=== PATIENT | female | born 1990 | race Caucasian/White ===

== ENCOUNTER → 2017-07-24 | Outpatient (CLI) | payer OTHER ==
[2017-07-24 09:37] LABS: HCT 37.7 % (34.0-46.0); MCH 28.6 pg (25.0-35.0); MCHC 34.5 g/dL (31.0-37.0); MCV 82.8 fL (80.0-100.0); Mean Platelet Volume 7.7; Platelet Count 221 k/uL (150-450); RBC 4.56 m/uL (3.80-5.40); RDW 13.9 % (11.5-15.5); WBC 13.7 k/uL (3.8-10.6)
[2017-07-24 09:46] LABS: Glucose 75 mg/dL (74-99)
--- NOTE | 2017-07-24 10:00 | US ---
EXAMINATION TYPE: Transabdominal DATE OF EXAM: 07/10/17 COMPARISON: NONE CLINICAL HISTORY: Z36 Confirm Dates,. Confirm dates, 2, para 1 EXAM PERFORMED: Transvaginal (TV) and Transabdominal (TA) EXAM MEASUREMENTS: GESTATIONAL AGE / DATING Physician Established: (12 weeks/1 days) EDC: 02/04/2018 Dates by LMP: Unknown Dates by First Scan: No previous Dates by Current Scan for: (11 weeks/6 days) EDC: 02/06/2018 MATERNAL ANATOMY Uterus: 10.7 x 7.9 x 9.3cm, retroverted, heterogeneous Right Ovary: 2.8 x 1.5 x 2.0cm Left Ovary: not seen due to overlying bowel gas Post CDS / Adnexa: small amount of free fluid in posterior cul de sac Presence of free fluid: yes Presence of corpus luteal cyst: not seen at this time Presence of subchorionic bleed: 1.4 x 1.7 x 2.9cm complex area inferior to gestational sac GESTATION / SURVEY CRL: 5.0cm (11 weeks/6 days) Yolk Sac (normal less than 6mm): 7.8mm Heart Rate: 156 bpm Rhythm: Normal IUP: Viable IUP Nuchal Translucency 10-14wks (normal less than 3mm): unable to obtain due to position Date of LMP: Unknown Beta HcG (if available): Not available at time of exam Single live intrauterine gestation is seen as gestational sac, yolk sac and pole are identified . Yolk sac measures up to 8 mm which is abnormal (greater than 6 mm). Along superior aspect of gestat ional sac there is small to moderate-sized curvilinear fluid collection measuring 1.4 x 2.9 x 1.7 cm felt to reflect subchorionic hemorrhage. Small amount of free fluid is identified in pelvis. Backgrou nd uterus is heterogeneous, particularly anteriorly intramural fibroid cannot be excluded. Right ovary is seen. Left ovary is not clearly identified. No suspicious extraovarian adnexal masses are present. IMPRESSION: Single live intrauterine gestation is confirmed, mean crown-rump length is 5.0 cm corresponding to 11 weeks 6 day old fetus. Short-term ultrasound follow-up is advised.
[2017-07-24 18:21] LABS: HIV AB P24 Non-Reactive (Non-Reactive); HIV P24 AG Non-Reactive (Non-Reactive)
[2017-07-25 05:36] LABS: Toxoplasma Antibody (IgG) <3.0 IU/mL (<7.2); Toxoplasma Antibody (IgM) <3.0 AU/mL (<8.0)
== END | disposition home or self-care (01) ==
LOC: RADUSWWP 08:30
PROVIDERS: ATTEND Obstetrics & Gynecology
DX: Z36.89 Encounter for other specified antenatal screening (principal)
CPT/HCPCS: 36415; 76801; 76817; 82565; 82947; 85027; 86762; 86777; 86778; 86780; 86850; 86900; 86901; 87340; 87390

== ENCOUNTER 2017-09-06 10:03 | Emergency (ER) | payer OTHER ==
[2017-09-06 10:15] VITALS: RESP 18
[2017-09-06] MEDS ORDERED: METOCLOPRAMIDE 5 MG/ML 2 ML VIAL IVP STA (10:16)
[2017-09-06] MEDS ORDERED: SODIUM CHLORIDE 0.9% 2,000 ML IV STA (10:16)
--- NOTE | 2017-09-06 10:22 | ED ---
Nausea/Vomiting/Diarrhea HPI - General Chief complaint: Nausea/Vomiting/Diarrhea Stated complaint: Vomiting-18 weeks Time Seen by Provider: 09/06/17 10:15 Source: patient, RN notes reviewed Mode of arrival: ambulatory Limitations: no limitations - History of Present Illness Initial comments: 27-year-old female presents emergency Department chief complaint of nausea and diarrhea. Patient states symptoms started yesterday. Patient states that her daughter and mother also had symptoms. She denies any abdominal pain or cramping. She states that she has a known intrauterine bleed that her ICICLE MACHINE OPERATOR is following she has no vaginal bleeding at this time. Patient states that her ICICLE MACHINE OPERATOR is Dr. Frias. Patient is A0. She reports no fever no chills. She called her OB nurse who advised, emergency from for IV fluids. - Related Data Previous Rx's Medication Instructions Recorded Metoclopramide [Reglan] 10 mg PO TID PRN #15 tab 09/06/17 Allergies Allergy/AdvReac Type Severity Reaction Status Date / Time No Known Allergies Allergy Verified 09/06/17 10:21 Review of Systems ROS Statement: Those systems with pertinent positive or pertinent negative responses have been documented in the HPI. ROS Other: All systems not noted in ROS Statement are negative. Past Medical History Additional Past Medical History / Comment(s): Blood clotting disorder History of Any Multi-Drug Resistant Organisms: None Reported Past Surgical History: Section Past Psychological History: No Psychological Hx Reported Smoking Status: Never smoker Past Alcohol Use History: None Reported Past Drug Use History: None Reported General Exam Limitations: no limitations General appearance: alert, in no apparent distress Head exam: Present: atraumatic, normocephalic, normal inspection ENT exam: Present: normal exam, normal oropharynx, mucous membranes moist Neck exam: Present: normal inspection, full ROM. Absent: tenderness, meningismus, lymphadenopathy Respiratory exam: Present: normal lung sounds bilaterally. Absent: respiratory distress, wheezes, rales, rhonchi, stridor Cardiovascular Exam: Present: regular rate, normal rhythm, normal heart sounds. Absent: systolic murmur, diastolic murmur, rubs, gallop, clicks GI/Abdominal exam: Present: soft, normal bowel sounds. Absent: distended, tenderness, guarding, rebound, rigid Back exam: Absent: CVA tenderness (R), CVA tenderness (L) Neurological exam: Present: alert, oriented X3, CN II-XII intact Course Vital Signs 09/06/17 10:11 Temperature 98.5 F Pulse Rate 85 Respiratory 18 Rate Blood Pressure 135/84 O2 Sat by Pulse 98 Oximetry - Reevaluation(s) Reevaluation #1: 09/06/17 11:44 Patient was reevaluated and updated on lab results. Patient states she feels much better after fluids and antiemetics. Medical Decision Making - Medical Decision Making 27-year-old female presents from for nausea vomiting diarrhea. Patient has had multiple family members with similar symptoms. Patient was hydrated in feels better. Patient will be discharged with a few tablets of Reglan and return parameters were discussed. - Lab Data Result diagrams: 09/06/17 10:30 09/06/17 10:30 Lab Results 09/06/17 09/06/17 09/06/17 Range/Units 10:30 10:30 11:05 WBC 7.1 (3.8-10.6) k/uL RBC 4.21 (3.80-5.40) m/uL Hgb 12.8 (11.4-16.0) gm/dL Hct 35.3 (34.0-46.0) % MCV 83.7 (80.0-100.0) fL MCH 30.4 (25.0-35.0) pg MCHC 36.3 (31.0-37.0) g/dL RDW 14.0 (11.5-15.5) % Plt Count 225 (150-450) k/uL Neutrophils % 76 % Lymphocytes % 15 % Monocytes % 5 % Eosinophils % 1 % Basophils % 0 % Neutrophils # 5.4 (1.3-7.7) k/uL Lymphocytes # 1.1 (1.0-4.8) k/uL Monocytes # 0.4 (0-1.0) k/uL Eosinophils # 0.1 (0-0.7) k/uL Basophils # 0.0 (0-0.2) k/uL Sodium 138 (137-145) mmol/L Potassium 3.5 (3.5-5.1) mmol/L Chloride 102 (98-107) mmol/L Carbon Dioxide 22 (22-30) mmol/L Anion Gap 14 mmol/L BUN 4 L (7-17) mg/dL Creatinine 0.42 L (0.52-1.04) mg/dL Est GFR (CKD-EPI)AfAm >90 (>60 ml/min/1.73 sqM) Est GFR (CKD-EPI)NonAf >90 (>60 ml/min/1.73 sqM) Glucose 87 (74-99) mg/dL Calcium 9.4 (8.4-10.2) mg/dL Total Bilirubin 0.5 (0.2-1.3) mg/dL AST 19 (14-36) U/L ALT 20 (9-52) U/L Alkaline Phosphatase 46 (38-126) U/L Total Protein 6.9 (6.3-8.2) g/dL Albumin 4.0 (3.5-5.0) g/dL Amylase 56 (30-110) U/L Lipase 25 (23-300) U/L Urine Color Yellow Urine Appearance Clear (Clear) Urine pH 6.5 (5.0-8.0) Ur Specific [place] 1.010 (1.001-1.035) Urine Protein Negative (Negative) Urine Glucose (UA) Negative (Negative) Urine Ketones Trace H (Negative) Urine Blood Negative (Negative) Urine Nitrite Negative (Negative) Urine Bilirubin Negative (Negative) Urine Urobilinogen <2.0 (<2.0) mg/dL Ur Leukocyte Esterase Negative (Negative) Disposition Clinical Impression: Gastroenteritis Disposition: HOME SELF-CARE Condition: Stable Instructions: Acute Nausea and Vomiting (ED) Additional Instructions: Please return to the Emergency Department if symptoms worsen or any other concerns. Prescriptions: Metoclopramide [Reglan] 10 mg PO TID PRN #15 tab PRN Reason: GERD Is patient prescribed a controlled substance at d/c from ED?: No Referrals: Andrew Davies MD [Primary Care Provider] - 1-2 days Time of Disposition: 11:45
[2017-09-06 10:49] LABS: Basophils % (A) 0 %; Eosinophils # (A) 0.1 k/uL (0-0.7); Eosinophils % (A) 1 %; HCT 35.3 % (34.0-46.0); HGB 12.8 gm/dL (11.4-16.0); Lymphocytes # (A) 1.1 k/uL (1.0-4.8); Lymphocytes % (A) 15 %; MCH 30.4 pg (25.0-35.0); MCHC 36.3 g/dL (31.0-37.0); MCV 83.7 fL (80.0-100.0); Mean Platelet Volume 7.3; Monocytes # (A) 0.4 k/uL (0-1.0); Monocytes % (A) 5 %; Neutrophils # (A) 5.4 k/uL (1.3-7.7); Neutrophils % (A) 76 %; Platelet Count 225 k/uL (150-450); RBC 4.21 m/uL (3.80-5.40); WBC 7.1 k/uL (3.8-10.6)
[2017-09-06 11:05] LABS: ALT 20 U/L (9-52); AST 19 U/L (14-36); Alkaline Phosphatase 46 U/L (38-126); Amylase 56 U/L (30-110); Anion Gap 14 mmol/L; Blood Urea Nitrogen 4 mg/dL (7-17); Calcium 9.4 mg/dL (8.4-10.2); Carbon Dioxide 22 mmol/L (22-30); Chloride 102 mmol/L (98-107); Glucose 87 mg/dL (74-99); Lipase 25 U/L (23-300); Potassium 3.5 mmol/L (3.5-5.1); Sodium 138 mmol/L (137-145); Total Bilirubin 0.5 mg/dL (0.2-1.3); Total Protein 6.9 g/dL (6.3-8.2)
[2017-09-06 11:34] LABS: Appearance,Urine Clear (Clear); Bilirubin,Urine Negative (Negative); Blood,Urine Negative (Negative); Color,Urine Yellow; Glucose,Urine (UA) Negative (Negative); Ketones,Urine Trace (Negative); Leukocyte Esterase,Urine Negative (Negative); Nitrite,Urine Negative (Negative); PH, Urine 6.5 (5.0-8.0); Protein,Urine Negative (Negative); Urobilinogen,Urine <2.0 mg/dL (<2.0)
[2017-09-06 12:06] VITALS: BP 116/55; PULSE 58; TEMP 98
== END 2017-09-06 12:35 | disposition home or self-care (01) ==
LOC: EC 10:03
DX: O99.612 Diseases of the digestive system complicating pregnancy, second trimester (principal); K52.9 Noninfective gastroenteritis and colitis, unspecified; Z3A.18 18 weeks gestation of pregnancy
CPT/HCPCS: 36415; 80053; 81003; 82150; 83690; 85025; 96361; 96374; 99284

== ENCOUNTER 2018-01-28 05:45 | Inpatient (IN) | payer OTHER ==
--- NOTE | 2018-01-25 06:44 | P.HPOB ---
History of Present Illness H&P Date: 01/25/18 Chief Complaint: section and tubal ligation This patient is a pleasant 27-year-old 2 para 1 female estimated date of confinement 02/04/2018 estimated gestational age 39-0/7 weeks who presents to labor and delivery for repeat section secondary to previous section and antiphospholipid syndrome. Patient is also requesting permanent sterilization. Patient's is complicated by known antiphospholipid syndrome and she is been on aspirin and heparin throughout the . She did stop the aspirin at 36 weeks and stopped her heparin on Sunday evening. Patient's otherwise has been uncomplicated. Review of Systems Gastrointestinal: Reports heartburn Genitourinary: Reports Menstruation: Reports amenorrhea Past Medical History Past Medical History: Blood Disorder Additional Past Medical History / Comment(s): Blood clotting disorder - CARDIOLIPIN ANTIOBODIES History of Any Multi-Drug Resistant Organisms: None Reported Past Surgical History: Section Past Anesthesia/Blood Transfusion Reactions: No Reported Reaction Past Psychological History: No Psychological Hx Reported Smoking Status: Never smoker Past Alcohol Use History: None Reported Past Drug Use History: None Reported - Past Family History Mother Family Medical History: No Reported History Medications and Allergies Home Medications Medication Instructions Recorded Confirmed Type Heparin 80 Units 80 units SQ BID 01/23/18 History Pnv,Calcium 72/Iron/Folic Acid 1 each PO DAILY 01/23/18 01/23/18 History [ Plus Tablet] Allergies Allergy/AdvReac Type Severity Reaction Status Date / Time No Known Allergies Allergy Verified 01/23/18 14:31 Exam - OBG Physical Exam Abdomen: bowel sounds normal, no diffuse tenderness, no bruit present, no guarding noted, no hepatomegaly, no splenomegaly, no mass Vulva: both: normal Vagina: normal moisture, no discharge Cervix: no lesion, no discharge Uterus: enlarged Adnexa: both: normal Anus/Rectum: normal perianal skin, no rectal mass, no hemorrhoids, heme negative Results blood work shows she is A positive, rubella nonimmune, RPR nonreactive , hepatitis B negative, HIV nonreactive, Glucola was normal, group B strep was negative, ultrasounds have been normal. Patient has a history of positive anticardiolipin antibody Assessment and Plan Assessment: This is a pleasant 27-year-old 2 para 1 female estimated gestational age 39 weeks who presents for repeat section and also requesting tubal ligation. Patient has known antiphospholipid syndrome and has been on heparin however discontinued this prior to surgery. Plan is to check coagulation factors, proceed with repeat section and bilateral partial salpingectomy. Patient will have heparin and DVT prophylaxis. Patient does understand a tubal ligation is considered permanent however does have a failure rate of approximately 5 per thousand. She understands that surgery itself has risks including risks of infection, bleeding, possible bowel , bladder, vessels, and/or other organs. She also understands that due to her condition she is at increased risk of DVT and pulmonary embolism. All the patient's questions are answered written consent is obtained. (1) Previous delivery affecting Status: Acute Code(s): O34.219 - MATERNAL CARE FOR UNSP TYPE SCAR FROM PREVIOUS DEL SNOMED Code(s): 003076629 (2) Family planning Status: Acute Code(s): Z30.09 - ENCOUNTER FOR OTH GENERAL CNSL AND ADVICE ON CONTRACEPTION SNOMED Code(s): 942568587 (3) Antiphospholipid antibody positive Status: Acute Code(s): R76.0 - RAISED ANTIBODY TITER SNOMED Code(s): 818134129
[2018-01-28] MEDS ORDERED: CITRIC ACID-SODIUM CITRATE 15 ML CUP PO ONE (06:01)
[2018-01-28] MEDS ORDERED: LACTATED RINGERS 1,000 ML IV SCH (06:01)
[2018-01-28] MEDS ORDERED: LACTATED RINGERS 1,000 ML IV ONE (06:01)
[2018-01-28 06:08] VITALS: BMI 42.3
[2018-01-28 06:15] LABS: Basophils # (A) 0.1 k/uL (0-0.2); Basophils % (A) 0 %; Eosinophils # (A) 0.2 k/uL (0-0.7); Eosinophils % (A) 1 %; HCT 36.5 % (34.0-46.0); HGB 12.6 gm/dL (11.4-16.0); Lymphocytes # (A) 2.7 k/uL (1.0-4.8); Lymphocytes % (A) 19 %; MCH 29.6 pg (25.0-35.0); MCHC 34.6 g/dL (31.0-37.0); MCV 85.5 fL (80.0-100.0); Mean Platelet Volume 7.7; Monocytes # (A) 0.6 k/uL (0-1.0); Monocytes % (A) 4 %; Neutrophils # (A) 10.2 k/uL (1.3-7.7); Neutrophils % (A) 73 %; Platelet Count 248 k/uL (150-450); RBC 4.27 m/uL (3.80-5.40); RDW 14.3 % (11.5-15.5)
[2018-01-28 06:28] LABS: INR 0.9 (<1.2); Partial Thromboplastin Time 25.2 sec (22.0-30.0); Prothrombin Time 9.3 sec (9.0-12.0)
[2018-01-28] MEDS ORDERED: ceFAZolin IN SWFI 2 GM/20 ML SYRINGE IVP ONE (07:16)
[2018-01-28] MEDS ORDERED: NALBUPHINE 10 MG/ML VIAL (10ML MDV) ONE (07:51)
[2018-01-28] MEDS ORDERED: ONDANSETRON 4 MG/2 ML VIAL ONE (07:51)
[2018-01-28] MEDS ORDERED: DEXAMETHASONE SOD PHOS (MDV) 100 MG/10 ML VIAL ONE (07:51)
[2018-01-28] MEDS ORDERED: MORPHINE SULFATE (PF) 0.3 MG/0.3 ML SYR ONE (07:51)
[2018-01-28] MEDS ORDERED: OXYTOCIN 10 UNIT/ML 1 ML VIAL ONE (07:51)
[2018-01-28] MEDS ORDERED: ePHEDrine SULFATE/0.9% NACL/PF 50 MG/5 ML SYRINGE IV ONE (07:51)
[2018-01-28] MEDS ORDERED: METOCLOPRAMIDE 5 MG/ML 2 ML VIAL IVP PRN ×2 (08:39→10:39)
[2018-01-28] MEDS ORDERED: diphenhydrAMINE 50 MG/ML 1 ML VIAL IVP PRN ×2 (08:39→10:39)
[2018-01-28] MEDS ORDERED: NALBUPHINE 10 MG/ML VIAL (10ML MDV) IV PRN (08:39)
[2018-01-28] MEDS ORDERED: NALOXONE 0.4 MG/ML 1 ML VIAL IV PRN ×2 (08:39→10:39)
[2018-01-28] MEDS ORDERED: HYDROmorphone 1 MG/ML 1 ML SYRINGE IVP PRN (08:39)
--- NOTE | 2018-01-28 08:46 | P.OP ---
Date of Procedure: 01/28/18 Preoperative Diagnosis: #1: 39-0/7 weeks . #2: Previous section desires repeat. #3: Multi parity desires permanent sterilization. Postoperative Diagnosis: Same, true knot in the umbilical cord Procedure(s) Performed: Repeat low transverse section and bilateral partial salpingectomy Anesthesia: spinal Surgeon: Krzysztof Frias Web Site Manager #1: Michelle Mcmillan Estimated Blood Loss (ml): 800 Pathology: other (Placenta and bilateral fallopian tube segments) Condition: stable Disposition: floor Indications for Procedure: Please see dictated H&P for intimate details of this patient's admission. Brief summary this is a pleasant 27-year-old 2 para 1 female 39-0/7 weeks gestation who is admitted to labor and delivery for elective repeat section and also requesting permanent sterilization. Patient understands a tubal ligation is permanent however there is a failure rate of approximately 5 per thousand procedures done. She understands if she does become she is a 50% chance of a tubal or ectopic . She also understands risk of surgery including risks of infection, bleeding, possible injury bowel, bladder, vessels, and/or other organs. All the patient's questions are answered and a written consent is obtained. Operative Findings: This is a vigorous viable female infant Apgars are 8 and 9 delivery time is 0810 hours. There was a true knot in the umbilical cord. Description of Procedure: This patient has a Chakraborty catheter placed to straight drain. She is subsequently taken to the operating room where she sat up and spinal anesthetic is administered without incident. With an adequate level of anesthesia she has abdominal prep and drape. Scalpels then taken and a Pfannenstiel skin incision is then made. A second scalpel is taken down to the fascia and the fascia scored with a knife. Fascial incision extended bilaterally using the Early scissors. Fascia is then taken sharply off the rectus muscles. Rectus muscles are the peritoneum identified and entered sharply. Peritoneal incision extended superior and inferior without difficulty. Bladder blade is then placed. Bladder peritoneum was taken off the lower uterine segment sharply. Scalpels and taken a low transverse uterine incision is then made. Using a hemostat I into the uterine cavity bluntly. The placenta is found to be anteriorly. I bluntly go through the uterine incision and there is loss of clear fluid. This incision is extended bluntly. Infant's head is then guided through the incision with fundal pressure the infant is delivered. Mouth and nares are bulb suctioned there is no evidence of a nuchal cord. We then have delivery anterior posterior shoulder and rest this 's body. Vigorous viable female infant Apgars are 8 and 9. Infant has spontaneous respirations and good cry. The umbilical cord is doubly clamped and cut. There is a true knot 1. Infant is handed off to the nurses in attendance. The placenta is then manually extracted intact. The uterine incision demarcated with Zheng clamps and closed using 0 Vicryl running locked fashion area in excellent hemostasis is noted. Then turned my attention to the left fallopian tube and using a hemostat I grabbed the fallopian tube approximately 4 cm from its cornual insertion using Bovie cautery a small window made to the mesial salpinx. Using a 2-0 silk suture I doubly ligate a knuckle the tube. A 2 cm segment of the tube was then handed off to pathology. Cauterization done of the tubal ends. Similar technique is done on the right side with similar results. Excess fluid is removed from the pelvis. The bladder peritoneum is reapproximated using a 3-0 Vicryl suture. Excellent hemostasis is noted. Uterus placed back into the abdomen. Final inspection shows hemostasis. The parietal peritoneum was then closed using 0 Vicryl running fashion. Rectus muscles reapproximated in 0 Vicryl interrupted fashion. Fascia is then closed using 0 PDS. Fascial incision is intact and hemostatic. Subcutaneous tissues and closed using a 3-0 Vicryl. Skin is and closed using mishel. All counts are correct 3. There are no complications. Patient is taken to her birthing suite in satisfactory condition.
[2018-01-28] MEDS ORDERED: diphenhydrAMINE 25 MG CAP PO PRN (10:39)
[2018-01-28] MEDS ORDERED: ZOLPIDEM 5 MG TAB PO PRN (10:39)
[2018-01-28] MEDS ORDERED: ACETAMINOPHEN TAB 325 MG TAB PO PRN (10:39)
[2018-01-28] MEDS ORDERED: SIMETHICONE 80 MG CHEWABLE PO PRN (10:39)
[2018-01-28] MEDS ORDERED: ONDANSETRON 4 MG/2 ML VIAL IVP PRN (10:39)
[2018-01-28] MEDS ORDERED: OXYTOCIN 20 UNITS/1000 ML NS 1,000 ML IV SCH (10:39)
[2018-01-28] MEDS: KETOROLAC 30 MG/ML 1 ML VIAL IVP PRN (16:29)
[2018-01-28] MEDS: LACTATED RINGERS 1,000 ML IV SCH (17:17)
[2018-01-28] MEDS: SENNOSIDES-DOCUSATE SODIUM 1 EACH TAB PO SCH (20:14)
[2018-01-29] MEDS: KETOROLAC 30 MG/ML 1 ML VIAL IVP PRN ×3 (00:57→14:18)
--- NOTE | 2018-01-29 06:19 | P.PNOBGPC ---
Subjective - Subjective Patient reports: Reports appetite normal, Reports voiding normally, Reports pain well controlled, Reports ambulating normally : doing well Objective - Vital Signs Latest vital signs: Vital Signs Temp Pulse Resp BP Pulse Ox 01/29/18 05:00 16 01/29/18 03:20 98.3 F 69 16 111/64 01/29/18 03:00 16 98 01/29/18 01:00 16 98 01/29/18 00:00 69 16 01/28/18 23:56 98.5 F 69 16 125/65 99 01/28/18 23:00 16 98 01/28/18 21:00 16 98 01/28/18 20:00 98.6 F 81 16 138/72 98 01/28/18 19:00 16 01/28/18 17:00 16 96 01/28/18 16:00 98.2 F 90 16 141/72 96 01/28/18 15:00 18 01/28/18 13:38 98 01/28/18 13:00 16 01/28/18 12:00 96.8 F L 80 18 129/69 98 01/28/18 11:39 18 97 01/28/18 10:35 96.3 F L 80 18 142/65 97 01/28/18 10:09 78 18 132/61 98 01/28/18 09:39 96.8 F L 109 H 18 136/60 98 01/28/18 09:34 81 18 97 01/28/18 09:24 78 18 133/67 98 01/28/18 09:09 97.2 F L 94 18 139/70 01/28/18 08:54 82 18 119/66 100 01/28/18 08:39 96.5 F L 78 18 114/66 98 Intake and Output 01/28/18 01/28/18 01/29/18 14:59 22:59 06:59 Intake Total 1200 1640 Output Total 3299 458 1670 Balance 200 1015 -1000 Intake: Intake, IV Titration 1000 1000 Amount Lactated Ringers 1,000 ml 1000 @ 125 mls/hr IV .Q8H [facility] Rx#:[id number] Lactated Ringers 1,000 ml 1000 @ 4000 mls/hr IV .Q15M [facility] Rx#:[id number] Oral 200 640 Output: Urine 723 338 9567 Uretheral (Chakraborty) 425 500 Emesis 100 200 Estimated Blood Loss 600 Other: Voiding Method Indwelling Catheter Indwelling Catheter # Voids 450 1 - Exam Lungs: bilateral: normal Chest: Normal S1, Normal S2 Extremities: Present: normal Abdomen: Present: normal appearance, soft. Absent: distention, tenderness Incision: Present: normal, dry, intact Uterus: Present: normal, firm - Labs Labs: Abnormal Lab Results - Last 24 Hours (Table) 01/28/18 Range/Units 06:00 WBC 14.0 H (3.8-10.6) k/uL Neutrophils # 10.2 H (1.3-7.7) k/uL Assessment and Plan Assessment: Post operative day #1. Patient is resting without complaints. Vital signs are stable she's afebrile. Uterus is firm nontender and she is having normal lochia. CBC is pending her baby had some respiratory issues and currently in special care and stable. Plan is to advance her diet, encourage ambulation, allow the patient to shower, and continue routine postoperative care. (1) Previous delivery affecting Current Visit: No Status: Acute Code(s): O34.219 - MATERNAL CARE FOR UNSP TYPE SCAR FROM PREVIOUS DEL SNOMED Code(s): 049701261 (2) Family planning Current Visit: No Status: Acute Code(s): Z30.09 - ENCOUNTER FOR OTH GENERAL CNSL AND ADVICE ON CONTRACEPTION SNOMED Code(s): 616725517 (3) Antiphospholipid antibody positive Current Visit: No Status: Acute Code(s): R76.0 - RAISED ANTIBODY TITER SNOMED Code(s): 714431220
[2018-01-29] MEDS: SENNOSIDES-DOCUSATE SODIUM 1 EACH TAB PO SCH ×3 (07:59→21:35)
[2018-01-29 08:20] LABS: Basophils % (A) 0 %; Eosinophils # (A) 0.1 k/uL (0-0.7); Eosinophils % (A) 1 %; HGB 10.4 gm/dL (11.4-16.0); Lymphocytes # (A) 2.1 k/uL (1.0-4.8); Lymphocytes % (A) 18 %; MCHC 33.5 g/dL (31.0-37.0); MCV 86.6 fL (80.0-100.0); Mean Platelet Volume 7.6; Monocytes # (A) 0.6 k/uL (0-1.0); Monocytes % (A) 5 %; Neutrophils # (A) 8.8 k/uL (1.3-7.7); Neutrophils % (A) 73 %; Platelet Count 225 k/uL (150-450); RBC 3.58 m/uL (3.80-5.40); RDW 14.5 % (11.5-15.5)
--- NOTE | 2018-01-29 10:24 | P.PN ---
Subjective Progress Note Date: 01/29/18 Principal diagnosis: PO 1 s/p section Patient without any complains this AM Denies Headaches no purities site free of erythema/signs of infx S/P Duramorph spinal without complications, primary team will follow pain manag. Objective - Vital Signs Vital signs: Vital Signs Temp 98.1 F 01/29/18 07:54 Pulse 72 01/29/18 07:54 Resp 16 01/29/18 08:38 BP 110/59 01/29/18 07:54 Pulse Ox 96 01/29/18 07:54 Intake & Output 01/28/18 01/29/18 01/29/18 18:59 06:59 18:59 Intake Total 2740 100 620 Output Total 1625 1000 Balance 1115 -900 620 Intake: Intake, IV Titration 2000 500 Amount Lactated Ringers 1,000 ml 500 @ 125 mls/hr IV .Q8H [facility] Rx#:[id number] Lactated Ringers 1,000 ml 1000 @ 125 mls/hr IV .Q8H [facility] Rx#:[id number] Lactated Ringers 1,000 ml 1000 @ 4000 mls/hr IV .Q15M [facility] Rx#:[id number] Oral 740 100 120 Output: Urine 725 1000 Uretheral (Chakraborty) 425 500 Emesis 300 Estimated Blood Loss 600 Other: Voiding Method Indwelling Catheter # Voids 450 1 550 - Labs CBC & Chem 7: 01/29/18 07:36 Labs: Abnormal Lab Results - Last 24 Hours (Table) 01/29/18 Range/Units 07:36 WBC 12.0 H (3.8-10.6) k/uL RBC 3.58 L (3.80-5.40) m/uL Hgb 10.4 L (11.4-16.0) gm/dL Hct 31.0 L (34.0-46.0) % Neutrophils # 8.8 H (1.3-7.7) k/uL
[2018-01-29] MEDS: HYDROcodone/APAP 5-325MG 1 EACH TAB PO PRN ×2 (13:00→23:48)
[2018-01-29] MEDS ORDERED: MEASLES-MUMPS-RUBELLA VACC/PF 12,500 UNIT/0.5 ML VIAL SQ ONE (13:28)
[2018-01-29] MEDS: IBUPROFEN 600 MG TAB PO PRN (19:55)
[2018-01-30] MEDS: IBUPROFEN 600 MG TAB PO PRN ×3 (05:15→16:32)
--- NOTE | 2018-01-30 06:09 | P.PNOBGPC ---
Subjective - Subjective Patient reports: Reports appetite normal, Reports voiding normally, Reports pain well controlled, Reports ambulating normally : doing well Objective - Vital Signs Latest vital signs: Vital Signs Temp Pulse Resp BP Pulse Ox 01/30/18 00:00 16 01/29/18 23:49 98.4 F 80 16 114/69 98 01/29/18 23:00 16 01/29/18 15:34 98.5 F 79 18 124/64 97 01/29/18 15:00 18 01/29/18 13:00 18 01/29/18 08:38 16 01/29/18 07:54 98.1 F 72 16 110/59 96 01/29/18 07:00 16 Intake and Output 01/29/18 01/29/18 01/30/18 14:59 22:59 06:59 Intake Total 1820 Balance 1820 Intake: Intake, IV Titration 500 Amount Lactated Ringers 1,000 ml 500 @ 125 mls/hr IV .Q8H [facility] Rx#:[id number] Oral 1320 Other: # Voids 2 - Exam Lungs: bilateral: normal Chest: Normal S1, Normal S2 Extremities: Present: normal Abdomen: Present: normal appearance, soft. Absent: distention, tenderness Incision: Present: normal, dry, intact Uterus: Present: normal, firm - Labs Labs: Abnormal Lab Results - Last 24 Hours (Table) 01/29/18 Range/Units 07:36 WBC 12.0 H (3.8-10.6) k/uL RBC 3.58 L (3.80-5.40) m/uL Hgb 10.4 L (11.4-16.0) gm/dL Hct 31.0 L (34.0-46.0) % Neutrophils # 8.8 H (1.3-7.7) k/uL Assessment and Plan Assessment: Postoperative day #2. Patient is resting without new complaints. Vital signs are stable she is afebrile. Her incision is intact and dry. Her baby continues in special care and oxygen but appears to be clinically improving today. I am going to restart her heparin today since her lochia was normal and her CBC is normal. Plan is to continue routine postoperative care and restart heparin 5000 twice a day. (1) Previous delivery affecting Current Visit: No Status: Acute Code(s): O34.219 - MATERNAL CARE FOR UNSP TYPE SCAR FROM PREVIOUS DEL SNOMED Code(s): 441541136 (2) Family planning Current Visit: No Status: Acute Code(s): Z30.09 - ENCOUNTER FOR OTH GENERAL CNSL AND ADVICE ON CONTRACEPTION SNOMED Code(s): 371592721 (3) Antiphospholipid antibody positive Current Visit: No Status: Acute Code(s): R76.0 - RAISED ANTIBODY TITER SNOMED Code(s): 889673046
[2018-01-30] MEDS: HEPARIN SODIUM,PORCINE 5,000 UNIT/ML 1 ML VIAL SQ SCH ×2 (10:25→21:29)
[2018-01-30] MEDS: SENNOSIDES-DOCUSATE SODIUM 1 EACH TAB PO SCH ×2 (10:42→20:54)
[2018-01-30] MEDS: LACTATED RINGERS 1,000 ML IV SCH ×2 (20:55→20:58)
[2018-01-31] MEDS: IBUPROFEN 600 MG TAB PO PRN ×2 (05:00→15:25)
--- NOTE | 2018-01-31 06:26 | P.PNOBGPC ---
Subjective - Subjective Patient reports: Reports appetite normal, Reports voiding normally, Reports pain well controlled, Reports ambulating normally : doing well Objective - Vital Signs Latest vital signs: Vital Signs Temp Pulse Resp BP Pulse Ox 01/30/18 23:55 98.8 F 82 16 132/76 98 01/30/18 16:00 98.2 F 86 18 131/69 97 01/30/18 08:00 98.5 F 83 18 127/73 98 - Exam Lungs: bilateral: normal Chest: Normal S1, Normal S2 Extremities: Present: normal Abdomen: Present: normal appearance, soft. Absent: distention, tenderness Incision: Present: normal, dry, intact Uterus: Present: normal, firm Assessment and Plan Assessment: Postoperative day #3. Patient is resting without complaints. Vital signs are stable she is afebrile. Uterus is firm nontender and she is having normal lochia. Patient is tolerating regular diet, ambulating, urinating without difficulty. Patient's baby has improved markedly overnight and the patient will continue to be here until tomorrow. Plan is to continue routine postoperative care and discharge home tomorrow (1) Previous delivery affecting Current Visit: No Status: Acute Code(s): O34.219 - MATERNAL CARE FOR UNSP TYPE SCAR FROM PREVIOUS DEL SNOMED Code(s): 414940690 (2) Family planning Current Visit: No Status: Acute Code(s): Z30.09 - ENCOUNTER FOR OTH GENERAL CNSL AND ADVICE ON CONTRACEPTION SNOMED Code(s): 078494886 (3) Antiphospholipid antibody positive Current Visit: No Status: Acute Code(s): R76.0 - RAISED ANTIBODY TITER SNOMED Code(s): 128175406
[2018-01-31] MEDS: HEPARIN SODIUM,PORCINE 5,000 UNIT/ML 1 ML VIAL SQ SCH ×2 (09:15→23:12)
[2018-01-31] MEDS: SENNOSIDES-DOCUSATE SODIUM 1 EACH TAB PO SCH ×2 (10:14→23:12)
[2018-02-01] MEDS: IBUPROFEN 600 MG TAB PO PRN (03:04)
--- NOTE | 2018-02-01 05:56 | P.PNOBGPC ---
Subjective - Subjective Patient reports: Reports appetite normal, Reports voiding normally, Reports pain well controlled, Reports ambulating normally : doing well Objective - Vital Signs Latest vital signs: Vital Signs Temp Pulse Resp BP Pulse Ox 01/31/18 23:26 98.1 F 73 16 122/57 98 01/31/18 15:31 98.2 F 79 16 135/70 97 01/31/18 08:00 67 18 01/31/18 07:50 98.3 F 67 18 119/65 98 Intake and Output 01/31/18 01/31/18 02/01/18 14:59 22:59 06:59 Other: Voiding Method Toilet # Voids 1 - Exam Lungs: bilateral: normal Chest: Normal S1, Normal S2 Extremities: Present: normal Abdomen: Present: normal appearance, soft. Absent: distention, tenderness Incision: Present: normal, dry, intact Uterus: Present: normal, firm Assessment and Plan Assessment: Postoperative day #4. Patient is resting without complaints. Vital signs are stable she is afebrile. Her incision is intact and dry. normal course. Plan is to continue routine care and discharge home later today (1) Previous delivery affecting Current Visit: No Status: Acute Code(s): O34.219 - MATERNAL CARE FOR UNSP TYPE SCAR FROM PREVIOUS DEL SNOMED Code(s): 800007901 (2) Family planning Current Visit: No Status: Acute Code(s): Z30.09 - ENCOUNTER FOR OTH GENERAL CNSL AND ADVICE ON CONTRACEPTION SNOMED Code(s): 502107351 (3) Antiphospholipid antibody positive Current Visit: No Status: Acute Code(s): R76.0 - RAISED ANTIBODY TITER SNOMED Code(s): 180169822
--- NOTE | 2018-02-01 06:00 | P.DS ---
Providers Date of admission: 01/28/18 05:45 Expected date of discharge: 02/01/18 Attending physician: Krzysztof Frias Primary care physician: Krzysztof Frias - Discharge Diagnosis(es) (1) Previous delivery affecting Current Visit: No Status: Acute (2) Family planning Current Visit: No Status: Acute (3) Antiphospholipid antibody positive Current Visit: No Status: Acute Hospital Course: Please see dictated H&P for intimate details of this patient's admission. Brief summary is a pleasant 27-year-old 2 para 1 female 39 weeks gestation who is admitted to labor and delivery for elective repeat section and tubal ligation. Patient undergoes above-named surgery. By postoperative for patient was felt to be stable for discharge home follow up with me in 1 week for an incision check. Procedures: Repeat low transverse section and bilateral partial salpingectomy Patient Condition at Discharge: Good Plan - Discharge Summary Discharge Rx Participant: Yes New Discharge Prescriptions: New Ibuprofen [Motrin] 600 mg PO Q6HR PRN #40 tab PRN Reason: Mild Pain Or Fever >= 100.5 No Action Heparin 80 Units 80 units SQ BID Pnv,Calcium 72/Iron/Folic Acid [ Plus Tablet] 1 each PO DAILY Discharge Medication List Heparin 80 Units 80 units SQ BID 01/23/18 [History] Pnv,Calcium 72/Iron/Folic Acid [ Plus Tablet] 1 each PO DAILY 01/23/18 [ History] Ibuprofen [Motrin] 600 mg PO Q6HR PRN #40 tab 02/01/18 [Rx] Follow up Appointment(s)/Referral(s): Krzysztof Frias MD [Primary Care Provider] - 02/07/18 1:30 pm (Patient also has a visit on March 13 at 2:15 PM.) Patient Instructions/Handouts: (DC) Activity/Diet/Wound Care/Special Instructions: No heavy lifting or strenuous activities for 6 weeks. No intercourse or anything per vagina for 6 weeks. Please call if any fever, chills, excessive vaginal bleeding, and/or abdominal pain. Discharge Disposition: HOME SELF-CARE
[2018-02-01 08:00] VITALS: BP 135/77; PULSE 75; RESP 17; TEMP 98.9
[2018-02-01] MEDS: SENNOSIDES-DOCUSATE SODIUM 1 EACH TAB PO SCH (09:01)
[2018-02-01] MEDS: HEPARIN SODIUM,PORCINE 5,000 UNIT/ML 1 ML VIAL SQ SCH (09:01)
== END 2018-02-01 12:50 | disposition home or self-care (01) | DRG 784 ==
LOC: 4FBP 05:45
PROVIDERS: ADMIT Obstetrics & Gynecology; ATTEND Obstetrics & Gynecology
PROC: 0UB70ZZ Excision of Bilateral Fallopian Tubes, Open Approach (ICD-10-PCS; principal; 2018-01-28 08:00)
PROC: 10D00Z1 Extraction of Products of Conception, Low, Open Approach (ICD-10-PCS; principal; 2018-01-28 08:00)
PROC: 3E0134Z Introduction of Serum, Toxoid and Vaccine into Subcutaneous Tissue, Percutaneous Approach (ICD-10-PCS; 2018-01-29)
DX: O34.211 Maternal care for low transverse scar from previous cesarean delivery (principal); D68.61 Antiphospholipid syndrome; O99.12 Other diseases of the blood and blood-forming organs and certain disorders involving the immune mechanism complicating childbirth; O69.2XX0 Labor and delivery complicated by other cord entanglement, with compression, not applicable or unspecified; N85.8 Other specified noninflammatory disorders of uterus; Z37.0 Single live birth; Z30.2 Encounter for sterilization; Z23 Encounter for immunization; Z3A.39 39 weeks gestation of pregnancy; Z79.01 Long term (current) use of anticoagulants; Z79.82 Long term (current) use of aspirin; Z79.899 Other long term (current) drug therapy
CPT/HCPCS: 85025; 85610; 85730; 86850; 86870; 86880; 86900; 86901; 88302; 88307; 90707

== ENCOUNTER 2018-03-16 13:37 | Emergency (ER) | payer OTHER ==
[2018-03-16 13:58] VITALS: TEMP 98.3
[2018-03-16] MEDS ORDERED: SODIUM CHLORIDE 0.9% 1,000 ML IV STA (14:44)
[2018-03-16 15:30] LABS: Basophils % (A) 1 %; Eosinophils # (A) 0.3 k/uL (0-0.7); Eosinophils % (A) 3 %; HCT 37.9 % (34.0-46.0); HGB 12.7 gm/dL (11.4-16.0); Lymphocytes # (A) 2.3 k/uL (1.0-4.8); Lymphocytes % (A) 30 %; MCH 28.1 pg (25.0-35.0); MCHC 33.4 g/dL (31.0-37.0); Mean Platelet Volume 7.3; Monocytes # (A) 0.3 k/uL (0-1.0); Monocytes % (A) 4 %; Neutrophils # (A) 4.6 k/uL (1.3-7.7); Neutrophils % (A) 59 %; Platelet Count 286 k/uL (150-450); RBC 4.51 m/uL (3.80-5.40); RDW 13.7 % (11.5-15.5); WBC 7.7 k/uL (3.8-10.6)
[2018-03-16 15:40] LABS: ALT 39 U/L (9-52); AST 23 U/L (14-36); Albumin 4.2 g/dL (3.5-5.0); Alkaline Phosphatase 57 U/L (38-126); Anion Gap 9 mmol/L; Blood Urea Nitrogen 11 mg/dL (7-17); Calcium 9.6 mg/dL (8.4-10.2); Carbon Dioxide 25 mmol/L (22-30); Chloride 107 mmol/L (98-107); Glucose 90 mg/dL (74-99); Lipase 57 U/L (23-300); Potassium 4.4 mmol/L (3.5-5.1); Sodium 141 mmol/L (137-145); Total Bilirubin 0.3 mg/dL (0.2-1.3); Total Protein 7.2 g/dL (6.3-8.2)
[2018-03-16 16:40] LABS: Appearance,Urine Cloudy (Clear); Bilirubin,Urine Negative (Negative); Blood,Urine Negative (Negative); Color,Urine Yellow; Glucose,Urine (UA) Negative (Negative); Ketones,Urine Negative (Negative); Leukocyte Esterase,Urine Trace (Negative); Mucus,Urine Moderate /hpf; Nitrite,Urine Negative (Negative); PH, Urine 5.5 (5.0-8.0); Protein,Urine Negative (Negative); Specific Gravity,Urine 1.018 (1.001-1.035); Squamous Epithelial Cell,Urine 20 /hpf (0-4); Urobilinogen,Urine <2.0 mg/dL (<2.0)
--- NOTE | 2018-03-16 17:23 | CT ---
EXAMINATION TYPE: CT abdomen pelvis w con DATE OF EXAM: 03/16/2018 COMPARISON: None HISTORY: umbilical pain CT DLP: 1387.2 mGycm Automated exposure control for dose reduction was used. TECHNIQUE: Helical acquisition of images was performed from the lung bases through the pelvis. CONTRAST: Performed without Oral Contrast and with IV Contrast, patient injected with 100 mL of Isovue 300. FINDINGS: Lung bases are clear. There is no pleural effusion. Heart size is normal. There is no pericardial eff usion. Liver spleen pancreas gallbladder appear normal. Bile ducts are not dilated. Stomach appears n ormal. There is no adrenal mass. Kidneys show satisfactory contrast opacification. There is no hydronephrosi s. There is no retroperitoneal adenopathy. Ureters are not dilated. Bladder distends smoothly. There is no inguinal hernia. There is no free fluid in the pelvis. There is 6 cm cyst in the left adnexal r egion. This is probably an ovarian cyst. I see no intestinal wall thickening. There are no dilated loops. Appendix appears normal. There is no mesenteric edema. There is large umbilical hernia that contains fat. There is some fat stranding in the hernia fat. The opening is 2.8 cm. There is incarceration. The hernia measures overall 7 x 4.7 cm . There is mild subcutaneous edema over the lower lumbar spine. The lumbar spine is intact. Bony pelv is is intact. Uterus is retroverted. There is prominence of the endometrium that measures 1.8 cm. Thi s is probably due to hyperplasia. IMPRESSION: THERE IS INCARCERATED UMBILICAL HERNIA THAT CONTAINS FAT AND SOME INFLAMMATORY CHANGES WHICH ARE PROB ABLY CLINICALLY SIGNIFICANT. LARGE LEFT OVARIAN CYST. ENDOMETRIAL THICKENING CONSISTENT WITH HYPERPLASIA.
--- NOTE | 2018-03-16 17:52 | ED ---
General Adult HPI - General Chief complaint: Abdominal Pain Stated complaint: Hernia Source: patient, RN notes reviewed, old records reviewed Mode of arrival: ambulatory Limitations: no limitations - History of Present Illness Initial comments: 27-year-old female patient with past history of umbilical hernia, approximately 8 weeks status post section, presents to ED with pain and umbilical hernia. Patient states that she has known history of this hernia which was present during her most recent , has followed up with OB. Patient has not been seen by a surgeon for this issue. Patient states that shortly this morning presented pain in this area. Patient states she normally does not have pain. Patient states that the pain is worse if she stands, better when she is down. Patient denies nausea vomiting diarrhea, fever or chills, cough, shortness of breath, chest pain. Patient had tubal ligation after surgery, states she cannot be . Systemic: Pt denies fatigue, myalgia, fever/chills, rash. Pt denies weakness, night sweats, weight loss. Neuro: Pt denies headache, visual disturbances, syncope or pre-syncope. HEENT: Pt denies ocular discharge or irritation, otalgia, rhinorrhea, pharyngitis or notable lymphadenopathy. Cardiopulmonary: Pt denies chest pain, SOB, heart palpitations, dyspnea on exertion. Abdominal/GI: Pt denies n/v/d. : Pt denies dysuria, burning w/ urination, frequency/urgency. Denies new onset urinary or bowel incontinence. MSK: Pt denies myalgia, loss of strength or function in extremities. Neuro: Pt denies new onset weakness, paresthesias. - Related Data Home Medications Medication Instructions Recorded Confirmed Aspirin EC [Ecotrin] 325 mg PO DAILY 03/16/18 03/16/18 Pnv No.95/Ferrous Fum/Folic AC 1 tab PO DAILY 03/16/18 03/16/18 [ Multivitamin Tablet] Allergies Allergy/AdvReac Type Severity Reaction Status Date / Time No Known Allergies Allergy Verified 03/16/18 15:00 Review of Systems ROS Statement: Those systems with pertinent positive or pertinent negative responses have been documented in the HPI. ROS Other: All systems not noted in ROS Statement are negative. Past Medical History Past Medical History: Blood Disorder Additional Past Medical History / Comment(s): Blood clotting disorder - CARDIOLIPIN ANTIOBODIES History of Any Multi-Drug Resistant Organisms: None Reported Past Surgical History: Section Additional Past Surgical History / Comment(s): [place] tooth extraction Past Anesthesia/Blood Transfusion Reactions: No Reported Reaction Past Psychological History: No Psychological Hx Reported Smoking Status: Never smoker Past Alcohol Use History: None Reported Past Drug Use History: None Reported - Past Family History Mother Family Medical History: No Reported History, Congestive Heart Failure (CHF), Diabetes Mellitus, Hyperlipidemia, Hypertension Additional Family Medical History / Comment(s): Type 2 DM, Depression, Anxiety General Exam - General Exam Comments Initial Comments: Constitutional: NAD, AOX3, Pt has pleasant affect. HEENT: NC/AT, trachea midline, neck supple, no lymphadenopathy. Posterior pharynx non erythematous, without exudates. External ears appear normal, without discharge. Mucous membranes moist. Eyes PERRLA, EOM intact. There is no scleral icterus. No pallor noted. Cardiopulmonary: RRR, no murmurs, rubs or gallops, no JVD noted. Lungs CTAB in anterior and posterior johnson. No peripheral edema. Abdominal exam: Abdomen soft and non-distended. Medium size mass [place] superior to the umbilicus, periumbilical hernia mildly tender to palpation. Bowel sounds active in LLQ. No hepatosplenomegaly. No ecchymosis Neuro: CN II-XII grossly intact. No nuchal rigidity. MSK: No posterior calf tenderness bilaterally, homans sign negative bilaterally. Posterior tibialis and radial pulse +2 bilaterally. Limitations: no limitations Course Vital Signs 03/16/18 03/16/18 03/16/18 13:56 17:36 20:30 Temperature 98.3 F Pulse Rate 69 78 73 Respiratory 18 16 19 Rate Blood Pressure 130/92 128/70 127/71 O2 Sat by Pulse 100 99 99 Oximetry Medical Decision Making - Medical Decision Making 27-year-old female patient has known history of umbilical hernia, presents to ER with pain and umbilical hernia. Patient has pain to palpation at her periumbilical region. A moderate sized mass was demonstrated in periumbilical region. Laboratory investigations were not impressive, CBC/CMP/UA were evaluated. A CT of abdomen and pelvis revealed a incarcerated umbilical hernia with fat and fat stranding. Gen. surgery was consulted, recommended patient be discharged follow up with Dr. Haro outpatient. Patient prescribed, Tylenol 3 starter pack. Patient to return to ED if any new signs or symptoms develop including worsening pain,, chest pain, shortness breath, painful urination, any other new symptoms. Patient to follow up with general surgery in the morning. Patient to follow-up PCP in 1-2 days. Case discussed with Dr. Cooper. - Lab Data Result diagrams: 03/16/18 15:01 03/16/18 15:01 Lab Results 03/16/18 03/16/18 03/16/18 Range/Units 15:01 15: 15:01 WBC 7.7 (3.8-10.6) k/uL RBC 4.51 (3.80-5.40) m/uL Hgb 12.7 (11.4-16.0) gm/dL Hct 37.9 (34.0-46.0) % MCV 84.0 (80.0-100.0) fL MCH 28.1 (25.0-35.0) pg MCHC 33.4 (31.0-37.0) g/dL RDW 13.7 (11.5-15.5) % Plt Count 286 (150-450) k/uL Neutrophils % 59 % Lymphocytes % 30 % Monocytes % 4 % Eosinophils % 3 % Basophils % 1 % Neutrophils # 4.6 (1.3-7.7) k/uL Lymphocytes # 2.3 (1.0-4.8) k/uL Monocytes # 0.3 (0-1.0) k/uL Eosinophils # 0.3 (0-0.7) k/uL Basophils # 0.0 (0-0.2) k/uL Sodium 141 (137-145) mmol/L Potassium 4.4 (3.5-5.1) mmol/L Chloride 107 (98-107) mmol/L Carbon Dioxide 25 (22-30) mmol/L Anion Gap 9 mmol/L BUN 11 (7-17) mg/dL Creatinine 0.58 (0.52-1.04) mg/dL Est GFR (CKD-EPI)AfAm >90 (>60 ml/min/1.73 sqM) Est GFR (CKD-EPI)NonAf >90 (>60 ml/min/1.73 sqM) Glucose 90 (74-99) mg/dL Plasma Lactic Acid Enio 1.0 (0.7-2.0) mmol/L Calcium 9.6 (8.4-10.2) mg/dL Total Bilirubin 0.3 (0.2-1.3) mg/dL AST 23 (14-36) U/L ALT 39 (9-52) U/L Alkaline Phosphatase 57 (38-126) U/L Total Protein 7.2 (6.3-8.2) g/dL Albumin 4.2 (3.5-5.0) g/dL Lipase 57 (23-300) U/L Urine Color Urine Appearance (Clear) Urine pH (5.0-8.0) Ur Specific [place] (1.001-1.035) Urine Protein (Negative) Urine Glucose (UA) (Negative) Urine Ketones (Negative) Urine Blood (Negative) Urine Nitrite (Negative) Urine Bilirubin (Negative) Urine Urobilinogen (<2.0) mg/dL Ur Leukocyte Esterase (Negative) Urine WBC (0-5) /hpf Ur Squamous Epith Cells (0-4) /hpf Urine Mucus (None) /hpf Urine HCG, Qual (Not Detectd) 03/16/18 03/16/18 Range/Units 16:20 16:20 WBC (3.8-10.6) k/uL RBC (3.80-5.40) m/uL Hgb (11.4-16.0) gm/dL Hct (34.0-46.0) % MCV (80.0-100.0) fL MCH (25.0-35.0) pg MCHC (31.0-37.0) g/dL RDW (11.5-15.5) % Plt Count (150-450) k/uL Neutrophils % % Lymphocytes % % Monocytes % % Eosinophils % % Basophils % % Neutrophils # (1.3-7.7) k/uL Lymphocytes # (1.0-4.8) k/uL Monocytes # (0-1.0) k/uL Eosinophils # (0-0.7) k/uL Basophils # (0-0.2) k/uL Sodium (137-145) mmol/L Potassium (3.5-5.1) mmol/L Chloride (98-107) mmol/L Carbon Dioxide (22-30) mmol/L Anion Gap mmol/L BUN (7-17) mg/dL Creatinine (0.52-1.04) mg/dL Est GFR (CKD-EPI)AfAm (>60 ml/min/1.73 sqM) Est GFR (CKD-EPI)NonAf (>60 ml/min/1.73 sqM) Glucose (74-99) mg/dL Plasma Lactic Acid Enio (0.7-2.0) mmol/L Calcium (8.4-10.2) mg/dL Total Bilirubin (0.2-1.3) mg/dL AST (14-36) U/L ALT (9-52) U/L Alkaline Phosphatase (38-126) U/L Total Protein (6.3-8.2) g/dL Albumin (3.5-5.0) g/dL Lipase (23-300) U/L Urine Color Yellow Urine Appearance Cloudy H (Clear) Urine pH 5.5 (5.0-8.0) Ur Specific [place] 1.018 (1.001-1.035) Urine Protein Negative (Negative) Urine Glucose (UA) Negative (Negative) Urine Ketones Negative (Negative) Urine Blood Negative (Negative) Urine Nitrite Negative (Negative) Urine Bilirubin Negative (Negative) Urine Urobilinogen <2.0 (<2.0) mg/dL Ur Leukocyte Esterase Trace H (Negative) Urine WBC 3 (0-5) /hpf Ur Squamous Epith Cells 20 H (0-4) /hpf Urine Mucus Moderate H (None) /hpf Urine HCG, Qual Not Detected (Not Detectd) Disposition Clinical Impression: Umbilical hernia Disposition: HOME SELF-CARE Condition: Good Instructions: Umbilical Hernia (ED) Additional Instructions: Patient to adhere to previously discussed treatment plan and will take medication(s) as directed. Patient to follow up with PCP in 1-2 days. Patient to return to ED if symptoms do not improve. Is patient prescribed a controlled substance at d/c from ED?: No Referrals: Jake Diaz Jr, DO [Primary Care Provider] - 1-2 days Too Lopez DO [Doctor of Osteopathic Medicine] - 1-2 days Time of Disposition: 20:51
[2018-03-16 20:35] VITALS: BP 127/71; PULSE 73; RESP 19
[2018-03-16] MEDS ORDERED: ACET/COD 300 MG/30 MG STARTER PACK 6 TAB BTL PO STA (20:53)
--- NOTE | 2018-03-16 21:00 | P.GSCN ---
History of Present Illness Consult date: 03/16/18 History of present illness: 27-year-old female presents to the emergency department with complaints of some abdominal pain. She states that the pain has been worsening over the past few days. She has a fairly daughter that is approximately 6 weeks. She states that she has a history of an umbilical hernia prior to her that became worse during her . Since her delivery, she has been having on and off pain at the site. She denies any large bulge that remains. She denies any nausea and vomiting. She denies any change in bowel function. She denies any fevers, chills, chest pain or shortness of breath. CT of the abdomen and pelvis was performed that does show an incarcerated umbilical hernia with fatty tissue. She has no additional complaints at this time. Review of Systems All systems: negative Past Medical History Past Medical History: Blood Disorder Additional Past Medical History / Comment(s): Blood clotting disorder - CARDIOLIPIN ANTIOBODIES History of Any Multi-Drug Resistant Organisms: None Reported Past Surgical History: Section Additional Past Surgical History / Comment(s): [place] tooth extraction Past Anesthesia/Blood Transfusion Reactions: No Reported Reaction Past Psychological History: No Psychological Hx Reported Smoking Status: Never smoker Past Alcohol Use History: None Reported Past Drug Use History: None Reported - Past Family History Mother Family Medical History: No Reported History, Congestive Heart Failure (CHF), Diabetes Mellitus, Hyperlipidemia, Hypertension Additional Family Medical History / Comment(s): Type 2 DM, Depression, Anxiety Medications and Allergies Home Medications Medication Instructions Recorded Confirmed Type Aspirin EC [Ecotrin] 325 mg PO DAILY 03/16/18 03/16/18 History Pnv No.95/Ferrous Fum/Folic AC 1 tab PO DAILY 03/16/18 03/16/18 History [ Multivitamin Tablet] Allergies Allergy/AdvReac Type Severity Reaction Status Date / Time No Known Allergies Allergy Verified 03/16/18 15:00 Surgical - Exam Osteopathic Statement: *. No significant issues noted on an osteopathic structural exam other than those noted in the History and Physical/Consult. Vital Signs Temp Pulse Resp BP Pulse Ox 98.3 F 69 18 130/92 100 03/16/18 13:56 03/16/18 13:56 03/16/18 13:56 03/16/18 13:56 03/16/18 13:56 - General well nourished, no distress - Eyes PERRL, normal ocular movement - ENT normal mucosa, no hearing loss - Neck trachea midline - Respiratory normal respiratory effort - Abdomen Soft, nontender, nondistended, no rebound, no guarding, umbilical hernia is present and easily reducible - Neurologic normal sensation - Musculoskeletal normal gait - Psychiatric oriented to time, oriented to person, oriented to place Results - Labs 03/16/18 15:01 03/16/18 15:01 Abnormal Lab Results - Last 24 Hours (Table) 03/16/18 Range/Units 16:20 Urine Appearance Cloudy H (Clear) Ur Leukocyte Esterase Trace H (Negative) Ur Squamous Epith Cells 20 H (0-4) /hpf Urine Mucus Moderate H (None) /hpf Diabetes panel 03/16/18 Range/Units 15:01 Sodium 141 (137-145) mmol/L Potassium 4.4 (3.5-5.1) mmol/L Chloride 107 (98-107) mmol/L Carbon Dioxide 25 (22-30) mmol/L BUN 11 (7-17) mg/dL Creatinine 0.58 (0.52-1.04) mg/dL Glucose 90 (74-99) mg/dL Calcium 9.6 (8.4-10.2) mg/dL AST 23 (14-36) U/L ALT 39 (9-52) U/L Alkaline Phosphatase 57 (38-126) U/L Total Protein 7.2 (6.3-8.2) g/dL Albumin 4.2 (3.5-5.0) g/dL Calcium panel 03/16/18 Range/Units 15:01 Calcium 9.6 (8.4-10.2) mg/dL Albumin 4.2 (3.5-5.0) g/dL Pituitary panel 03/16/18 Range/Units 15:01 Sodium 141 (137-145) mmol/L Potassium 4.4 (3.5-5.1) mmol/L Chloride 107 (98-107) mmol/L Carbon Dioxide 25 (22-30) mmol/L BUN 11 (7-17) mg/dL Creatinine 0.58 (0.52-1.04) mg/dL Glucose 90 (74-99) mg/dL Calcium 9.6 (8.4-10.2) mg/dL Adrenal panel 12/08/18 Range/Units 15:01 Sodium 141 (137-145) mmol/L Potassium 4.4 (3.5-5.1) mmol/L Chloride 107 (98-107) mmol/L Carbon Dioxide 25 (22-30) mmol/L BUN 11 (7-17) mg/dL Creatinine 0.58 (0.52-1.04) mg/dL Glucose 90 (74-99) mg/dL Calcium 9.6 (8.4-10.2) mg/dL Total Bilirubin 0.3 (0.2-1.3) mg/dL AST 23 (14-36) U/L ALT 39 (9-52) U/L Alkaline Phosphatase 57 (38-126) U/L Total Protein 7.2 (6.3-8.2) g/dL Albumin 4.2 (3.5-5.0) g/dL - Imaging CT scan - abdomen: report reviewed, image reviewed (Fat-containing umbilical hernia) Assessment and Plan (1) Umbilical hernia Narrative/Plan: 27-year-old female with fat-containing umbilical hernia - I discussed the case with the patient, plan for outpatient repair of umbilical hernia, patient is agreeable to this plan. I did recommend no significant heavy lifting until she is seen in the outpatient setting this upcoming week. Current Visit: Yes Status: Acute Code(s): K42.9 - UMBILICAL HERNIA WITHOUT OBSTRUCTION OR GANGRENE SNOMED Code(s): 185335823
== END 2018-03-16 21:00 | disposition home or self-care (01) ==
LOC: EC 13:37
DX: K42.0 Umbilical hernia with obstruction, without gangrene (principal); D68.9 Coagulation defect, unspecified; Z79.82 Long term (current) use of aspirin; Z98.890 Other specified postprocedural states
CPT/HCPCS: 99284; 36415; 80053; 83605; 83690; 85025; 81001; 81025; 74177; Q9967

== ENCOUNTER → 2020-04-22 | Outpatient (CLI) | payer OTHER | END | disposition home or self-care (01) | LOC: LABWHC1 09:06 | PROVIDERS: ATTEND Emergency Medicine | DX: Z20.822 Contact with and (suspected) exposure to COVID-19 (principal) | CPT/HCPCS: U0003; C9803; U0005 ==

== ENCOUNTER → 2020-06-24 | Outpatient (CLI) | payer OTHER | END | disposition home or self-care (01) | LOC: LABWHC1 15:29 | PROVIDERS: ATTEND Emergency Medicine | DX: Z20.822 Contact with and (suspected) exposure to COVID-19 (principal) | CPT/HCPCS: U0003; C9803; U0005 ==